=== PATIENT | male | born 1965 | race Caucasian/White ===

== ENCOUNTER → 2016-11-13 | Outpatient (CLI) | payer OTHER ==
[~2016-11-13] MED LIST: GADAVIST IV PRN
--- NOTE | 2016-11-13 14:26 | DIAGNOSTIC IMAGING REPORT ---
MRI OF THE BRAIN COMBO INTERNAL AUDITORY CANAL PROTOCOL CLINICAL HISTORY: Left-sided tinnitus. Bilateral hearing loss. COMPARISON STUDY: No priors. TECHNIQUE: MRI of the brain was performed utilizing various T1 and T2-weighted sequences in the axial, sagittal, and coronal planes. Contrast-enhanced sequences were acquired following the administration of 8.8 cc of Gadavist. Additional high-resolution imaging through the skull base was performed both pre and postcontrast for further assessment of the internal auditory canals. FINDINGS: Brain parenchyma: The brain parenchyma is normal in appearance. There is no hemorrhage or mass effect. There is no restricted diffusion to suggest acute ischemia. No enhancing mass lesion is identified on the postcontrast images. Maki-white matter differentiation is preserved. No extra-axial fluid collection is seen. The cerebellar tonsils are normal in configuration. Ventricles, sulci, and cisterns: Normal in configuration. Internal auditory canals: No mass lesion is identified in the cerebellopontine angle bilaterally. There is no mass lesion or abnormal enhancement identified along the course of the internal auditory canals. The middle ear structures are normal as visualized. Pituitary and sella: Unremarkable. Intracranial vasculature: Normal flow voids are maintained at the skull base. Orbits: The bony orbits are grossly intact. Orbital contents are normal in appearance. Sinuses and mastoids: Clear. Calvarium: Unremarkable. Cervical cord: Partially visualized cervical spinal cord is normal in morphology and signal intensity. IMPRESSION: 1. No acute intracranial abnormality. 2. Unremarkable MRI assessment of the internal auditory canals. Electronically signed by: Phi Corcoran M.D. 11/13/2016 2:25 PM Dictated Date/Time: 11/13/2016 2:21 PM
== END | disposition home or self-care (01) ==
LOC: C.MRI 12:28
DX: H93.12 Tinnitus, left ear (principal)